=== PATIENT | female | born 1995 | race Caucasian/White ===

== ENCOUNTER 2018-07-09 23:16 | Outpatient (CLI) | payer OTHER ==
[2018-07-09] MEDS ORDERED: LACTATED RINGERS 500 ML IV ONE (23:45)
[2018-07-10] MEDS ORDERED: LACTATED RINGERS 1,000 ML ONE (00:05)
[2018-07-10] MEDS ORDERED: LACTATED RINGERS 1,000 ML IV ONE (00:07)
[2018-07-10 00:19] VITALS: BP 103/57
[2018-07-10 01:36] LABS: Amorphous Crystals,Urine Few; Bilirubin,Urine NEG (Negative); Blood,Urine NEG (Negative); Color,Urine Yellow (Yellow); Mucus,Urine FEW /HPF; Protein,Urine <15 mg/dL mg/dL (Negative); Urobilinogen,Urine < 2.0 mg/dL (<2.0)
== END 2018-07-10 01:49 | disposition home or self-care (01) ==
LOC: TRG 23:16
PROVIDERS: ATTEND Obstetrics & Gynecology
DX: O62.9 Abnormality of forces of labor, unspecified (principal); O26.893 Other specified pregnancy related conditions, third trimester; R10.9 Unspecified abdominal pain; O99.323 Drug use complicating pregnancy, third trimester; F12.90 Cannabis use, unspecified, uncomplicated; Z87.891 Personal history of nicotine dependence; Z3A.34 34 weeks gestation of pregnancy
CPT/HCPCS: 59025; 81001; J7120; 96360

== ENCOUNTER 2018-08-16 00:50 | Outpatient (CLI) | payer OTHER ==
[2018-08-16 01:12] VITALS: BP 116/58
== END 2018-08-16 02:25 | disposition home or self-care (01) ==
LOC: TRG 00:50
PROVIDERS: ATTEND Obstetrics & Gynecology
DX: O47.1 False labor at or after 37 completed weeks of gestation (principal); O99.513 Diseases of the respiratory system complicating pregnancy, third trimester; J45.909 Unspecified asthma, uncomplicated; Z3A.40 40 weeks gestation of pregnancy
CPT/HCPCS: 59025

== ENCOUNTER 2018-08-16 07:59 | Inpatient (IN) | payer OTHER, MEDICAID ==
[2018-08-16] MEDS ORDERED: STADOL IV PRN (08:11)
[2018-08-16] MEDS ORDERED: XYLOCAINE 2% INFILTRATI ONE (08:11)
[2018-08-16] MEDS ORDERED: NARCAN 0.4 MG/1 ML IV PRN (08:11)
[2018-08-16] MEDS ORDERED: SUBLIMAZE IV PRN (08:11)
[2018-08-16] MEDS ORDERED: BRETHINE IVP PRN (08:11)
[2018-08-16] MEDS ORDERED: BRETHINE SUB-Q PRN (08:11)
[2018-08-16] MEDS ORDERED: ZOFRAN IV PRN ×2 (08:11→14:05)
[2018-08-16] MEDS ORDERED: AMPICILLIN/NS 2 GM/100 ML 2 GM/100 ML BAG IV ONE (08:11)
--- NOTE | 2018-08-16 08:20 | History and Physical Report ---
History of Present Illness Date of examination: 08/16/18 Chief complaint: Labor History of present illness: Pt is a 22yo BF EDC 08/15/18; EGA 40 1/7 weeks presents to L&D complaining of RUC's q 2-3 mins. She received late care at [facility] since 23 weeks and co-managed by [facility] for Obesity and late care. records are available and GBS is Positive. Past History Past Medical History: asthma Past Surgical History: no surgical history FACILITY COORDINATOR History: abnormal PAP smear Social history: no significant social history, single - Obstetrical History Expected Date of Delivery: 08/15/18 Actual Gestation: 40 Week(s) 1 Day(s) : 3 Medications and Allergies Allergies Allergy/AdvReac Type Severity Reaction Status Date / Time No Known Allergies Allergy Unverified 07/09/18 23:45 Active Meds: Active Medications Butorphanol Tartrate (Stadol) 2 mg IV Q2H PRN PRN Reason: Pain , Severe (7-10) Ephedrine Sulfate (Ephedrine Sulfate) 10 mg IV Q2M PRN PRN Reason: Hypotension Fentanyl (Sublimaze) 100 mcg IV Q2H PRN PRN Reason: Labor Pain Oxytocin/Sodium Chloride (Pitocin/Ns 20 Unit/1000ml Drip) 20 units in 1,000 mls @ 125 mls/hr IV DIRECT BECKIE Oxytocin/Sodium Chloride (Pitocin/Ns 30 Unit/500ml) 30 units in 500 mls @ 1 mls/hr IV TITR BECKIE; Protocol Oxytocin/Sodium Chloride (Pitocin/Ns 30 Unit/500ml) 30 units in 500 mls @ 4 mls/hr IV TITR BECKIE; Protocol Lactated Ringer's (Lactated Ringers) 1,000 mls @ 125 mls/hr IV DIRECT BECKIE Ampicillin Sodium (Ampicillin/Ns 1 Gm/50 Ml) 1 gm in 50 mls @ 100 mls/hr IV Q4HR BECKIE; Protocol Ampicillin Sodium (Ampicillin/Ns 2 Gm/100 Ml) 2 gm in 100 mls @ 100 mls/hr IV ONCE ONE; Protocol Stop: 08/16/18 09:10 Lidocaine (Xylocaine 2%) 20 ml INFILTRATI ONCE ONE Stop: 08/16/18 08:12 Mineral Oil (Mineral Oil) 30 ml PO QHS PRN PRN Reason: Constipation Naloxone HCl (Narcan 0.4 Mg/1 Ml) 0.1 mg IV Q2MIN PRN PRN Reason: Res Rate </= 8 or 02 SAT < 92% Ondansetron HCl (Zofran) 4 mg IV Q8H PRN PRN Reason: Nausea And Vomiting Terbutaline Sulfate (Brethine) 0.25 mg SUB-Q ONCE PRN PRN Reason: Hyperstimulation/Hypertonicity Terbutaline Sulfate (Brethine) 0.25 mg IVP ONCE PRN PRN Reason: Hyperstimulation/Hypertonicity Review of Systems All systems: negative - Vital Signs Vital signs: Vital Signs Pulse BP 83 111/65 08/16/18 08:14 08/16/18 08:14 Temp Pulse Resp BP Pulse Ox 83 111/65 08/16/18 08:14 08/16/18 08:14 - Physical Exam Breasts: Positive: deferred Cardiovascular: Regular rate Lungs: Positive: Clear to auscultation Abdomen: Positive: normal appearance Genitourinary (Female): Positive: normal external genitalia Vagina: Positive: normal moisture Uterus: Positive: enlarged Extremities: Positive: normal - Obstetrical FHR: category 1 Uterine Contraction Monitor Mode: External Cervical Dilatation: 6 (per nurse) Cervical Effacement Percentage: 70 (per nurse) station: -1 Uterine Contraction Pattern: Regular Uterine Tone Measurement Phase: Contraction Uterine Contraction Intensity: Strong/Firm Results All other labs normal. Assessment and Plan - Patient Problems (1) 40 weeks gestation of Onset Date: 08/16/18 Current Visit: Yes Status: Acute Plan to address problem: A: IUP @ 40 1/7 weeks in labor +GBS P: Admit to L&D for expectant vaginal delivery IV Ampicillin
[2018-08-16] MEDS: LACTATED RINGERS 1,000 ML IV SCH ×2 (08:22→09:02)
[2018-08-16 08:51] LABS: Hematocrit 36.9 % (30.3-42.9); Hemoglobin 12.5 gm/dl (10.1-14.3); Mean Corpuscular HGB Conc 34 % (30-34); Mean Corpuscular Volume 80 fl (79-97); Platelet Count 268 K/mm3 (140-440); Red Blood Count 4.62 M/mm3 (3.65-5.03); Red Cell Distribution Width 15.2 % (13.2-15.2)
[2018-08-16] MEDS ORDERED: PITOCin/NS 20 UNIT/1000ML DRIP 20 UNITS/1,000 ML BAG IV SCH ×2 (09:00→15:00)
[2018-08-16] MEDS ORDERED: PITOCin/NS 30 UNIT/500ML 30 UNITS/500 ML BAG IV SCH ×2 (09:00)
[2018-08-16] MEDS ORDERED: fentaNYL-BUPIV 2 MCG/ML-0.125% 200 MCG/100 ML BAG EPIDURAL ONE (09:09)
[2018-08-16] MEDS ORDERED: NARCAN 2 MG/2 ML IV PRN (09:38)
--- NOTE | 2018-08-16 09:40 | Anesthesia Day of Surgery ---
Anesthesia Day of Surgery - Day of Surgery Patient Examined: Yes Patient H&P Reviewed: Yes Patient is NPO: Yes Beta Blockers: No Cardiac Clearance: No Pulmonary Clearance: No Basilio's Test: N/A
--- NOTE | 2018-08-16 09:40 | Anesthesia Consultation ---
Anesthesia Consult and Med Hx - Airway Anesthetic Teeth Evaluation: Good ROM Head & Neck: Adequate Mental/Hyoid Distance: Adequate Mallampati Class: Class II Intubation Access Assessment: Probably Good - Pulmonary Exam CTA: Yes - Cardiac Exam Cardiac Exam: RRR - Pre-Operative Health Status ASA Pre-Surgery Classification: ASA2 Proposed Anesthetic Plan: Epidural - Pulmonary Hx Asthma: Yes (Uses inhaler.) COPD: No Hx Pneumonia: No - Cardiovascular System Hx Hypertension: No - Central Nervous System Hx Seizures: No Hx Psychiatric Problems: No - Endocrine Hx Renal Disease: No Hx End Stage Renal Disease: No Hx Hypothyroidism: No Hx Hyperthyroidism: No - Hematic Hx Anemia: No Hx Sickle Cell Disease: No - Other Systems Hx Alcohol Use: No
[2018-08-16] MEDS ORDERED: MARCAINE 0.25% INFILTRATI ONE (09:43)
[2018-08-16] MEDS ORDERED: fentaNYL-BUPIV 2 MCG/ML-0.125% 200 MCG/100 ML BAG EPIDURAL SCH (10:00)
[2018-08-16] MEDS ORDERED: AMPICILLIN/NS 1 GM/50 ML 1 GM/50 ML BAG IV SCH (12:00)
--- NOTE | 2018-08-16 14:04 | Procedure Note ---
OB Delivery Note - Delivery Date of Delivery: 08/16/18 Surgeon: BRUCE CHAMPION Estimated blood loss: 200cc - Vaginal Delivery presentation: vertex Delivery position: OA Intrapartum events: PROM->1hr before delivery Delivery induction: none Delivery augmentation: rupture of membranes, pitocin Delivery monitor: external FHT, external uterine Route of delivery: Delivery placenta: spontaneous Delivery cord: 3 umbilical vessels Episiotomy: none Delivery laceration: none Anesthesia: epidural Delivery comments: delivered OA and placed on Mom's chest for [id number] bonding and delayed cord clamping, cut by Aunt - Infant A at 1 minute: 8 at 5 minutes: 9 Infant Gender: Female (4162gms)
[2018-08-16] MEDS ORDERED: PHENERGAN PR PRN (14:05)
[2018-08-16] MEDS ORDERED: BENADRYL PO PRN (14:05)
[2018-08-16] MEDS ORDERED: MILK OF MAGNESIA PO PRN (14:05)
[2018-08-16] MEDS ORDERED: PHENERGAN PO PRN (14:05)
[2018-08-16] MEDS ORDERED: TUCKS PAD TP PRN (14:05)
[2018-08-16] MEDS ORDERED: TYLENOL PO PRN (14:05)
[2018-08-16] MEDS ORDERED: DULCOLAX PR PRN (14:05)
[2018-08-16] MEDS ORDERED: LANSINOH TP PRN (14:05)
[2018-08-16] MEDS ORDERED: SODIUM CHLORIDE FLUSH SYRINGE 10 ML IV NR (15:00)
[2018-08-16] MEDS: IBUPROFEN PO SCH ×2 (17:40→22:00)
[2018-08-16] MEDS: NORCO 5/325 PO PRN ×2 (17:40→23:16)
[2018-08-16] MEDS: FEOSOL PO SCH (21:58)
[2018-08-16] MEDS ORDERED: MINERAL OIL PO PRN (22:00)
[2018-08-17 01:40] LABS: Hematocrit 34.5 % (30.3-42.9); Hemoglobin 11.3 gm/dl (10.1-14.3)
[2018-08-17] MEDS: IBUPROFEN PO SCH (04:51)
[2018-08-17] MEDS: NORCO 5/325 PO PRN ×2 (04:51→17:15)
[2018-08-17] MEDS ORDERED: M-M-R II VACCINE SUB-Q ONE (06:00)
[2018-08-17] MEDS ORDERED: BOOSTRIX IM ONE (06:00)
[2018-08-17] MEDS ORDERED: PRENATAL VITAMIN PO SCH (10:00)
--- NOTE | 2018-08-17 12:00 | Progress Note ---
Assessment and Plan - Patient Problems (1) 40 weeks gestation of Onset Date: 08/16/18 Current Visit: Yes Status: Resolved (2) (normal spontaneous vaginal delivery) Onset Date: 08/17/18 Current Visit: Yes Status: Resolved Plan to address problem: A: S/P - PPD #1 Doing well Asymptomatic anemia - stable P: May go home today. Subjective - Subjective Date of service: 08/17/18 Principal diagnosis: s/p - PPD #1 Interval history: Pt is feeling well without complaints. Bleeding improved. Patient reports: appetite normal, voiding normally, pain well controlled, flatus, ambulating normally, no dizzy ambulation, no nauseated : doing well, bottle feeding Objective - Vital Signs Latest vital signs: Vital Signs Temp Pulse Resp BP BP Pulse Ox 08/17/18 07:29 97.6 F 82 18 106/67 08/17/18 04:00 98.4 F 78 16 103/76 08/17/18 00:00 98.4 F 77 18 104/75 08/16/18 21:49 98.0 F 86 18 102/52 98 08/16/18 15:01 74 114/61 08/16/18 14:46 69 114/60 08/16/18 14:31 80 122/62 08/16/18 14:17 86 117/65 08/16/18 14:02 86 123/71 08/16/18 13:48 96 H 119/57 08/16/18 13:42 86 96 08/16/18 13:37 77 97 08/16/18 13:32 115 H 98 08/16/18 13:27 88 98 08/16/18 13:22 80 98 08/16/18 13:17 87 98 08/16/18 13:15 82 106/57 08/16/18 13:12 82 98 08/16/18 13:07 86 97 08/16/18 13:02 80 98 08/16/18 12:57 89 99 08/16/18 12:52 94 H 97 08/16/18 12:47 97 H 97 08/16/18 12:42 94 H 97 08/16/18 12:37 103 H 98 08/16/18 12:32 84 98 08/16/18 12:27 85 99 08/16/18 12:22 101 H 99 08/16/18 12:17 87 98 08/16/18 12:16 108 H 118/76 08/16/18 12:12 92 H 98 08/16/18 12:07 95 H 98 08/16/18 12:02 93 H 98 Intake and Output 08/16/18 08/17/18 08/17/18 22:59 06:59 14:59 Intake Total 120 200 480 Output Total 1999 Balance -1880 200 480 Intake: Oral 120 200 480 Output: Urine 1999 Void 2000 Other: Total, Intake Amount 120 200 480 Total, Output Amount 400 # Voids Void 1 - Exam Breasts: Present: deferred Abdomen: Present: normal appearance, soft Uterus: Present: normal, firm, fundal height below umbilicus Extremities: Present: normal - Labs Labs: Laboratory Tests 08/16/18 08/16/18 08/16/18 08:12 08:15 08:15 WBC 11.5 H RBC 4.62 Hgb 12.5 Hct 36.9 MCV 80 MCH 27 L MCHC 34 RDW 15.2 Plt Count 268 RPR Nonreactive Hep Bs Antigen Non-reactive Blood Type Antibody Screen 08/16/18 08/17/18 08:15 01:15 WBC RBC Hgb 11.3 Hct 34.5 MCV MCH MCHC RDW Plt Count RPR Hep Bs Antigen Blood Type O POSITIVE Antibody Screen Negative
[2018-08-17] MEDS: FEOSOL PO SCH (12:24)
--- NOTE | 2018-08-17 16:06 | Discharge Summary ---
Providers - Providers Date of Admission: 08/16/18 08:00 Date of discharge: 08/17/18 Attending physician: BRUCE CHAMPION Primary care physician: BRUCE CHAMPION Hospitalization Reason for admission: active labor, IUP at term, other (+GBS) Delivery: Episiotomy: none Laceration: none Other procedures: none complications: none Discharge diagnosis: IUP at term delivered baby: female Hospital course: Unremarkable. Condition at discharge: Good Disposition: DC-01 TO HOME OR SELFCARE - Discharge Diagnoses (1) 40 weeks gestation of Status: Resolved (2) (normal spontaneous vaginal delivery) Status: Resolved Plan - Discharge Medications Prescriptions: Ferrous Sulfate [Feosol 325 MG tab] 325 mg PO BID #60 tablet Ibuprofen [Motrin 600 MG tab] 600 mg PO Q6H #30 tablet Vit-Fe Fumar-FA [ Vitamin] 1 each PO QDAY #30 tablet - Provider Discharge Summary Activity: routine, no sex for 6 weeks, no heavy lifting 4 weeks, no strenuous exercise Diet: routine Instructions: routine Additional instructions: [] Smoking cessation referral if applicable(refer to patient education folder for contact #) [] Refer to [facility]'s [facility] Center Booklet Call your doctor immediately for: * Fever > 100.5 * Heavy vaginal bleeding ( >1 pad per hour) * Severe persistent headache * Shortness of breath * Reddened, hot, painful area to leg or breast * Drainage or odor from incision. * Keep incision clean and dry at all times and follow doctor's instructions regarding bathing/showering - Follow up plan Follow up: RBUCE CHAMPION MD [Primary Care Provider] - 6 Weeks NORM LUDWIG CNM [Advanced Practice Nurse] - 6 Weeks
[2018-08-17 16:31] VITALS: BP 102/53
== END 2018-08-17 18:19 | disposition home or self-care (01) | DRG 775 ==
LOC: TRG 07:59 → LD 08:00 → OB 15:55
PROVIDERS: ADMIT Obstetrics & Gynecology; ATTEND Obstetrics & Gynecology
PROC: 10E0XZZ Delivery of Products of Conception, External Approach (ICD-10-PCS; principal; 2018-08-16)
PROC: 3E0R3BZ Introduction of Anesthetic Agent into Spinal Canal, Percutaneous Approach (ICD-10-PCS; 2018-08-16)
PROC: 00HU33Z Insertion of Infusion Device into Spinal Canal, Percutaneous Approach (ICD-10-PCS; 2018-08-16)
DX: O99.824 Streptococcus B carrier state complicating childbirth (principal); O99.214 Obesity complicating childbirth; O99.52 Diseases of the respiratory system complicating childbirth; J45.909 Unspecified asthma, uncomplicated; O42.02 Full-term premature rupture of membranes, onset of labor within 24 hours of rupture; E66.9 Obesity, unspecified; Z3A.40 40 weeks gestation of pregnancy; Z37.0 Single live birth; Z68.43 Body mass index [BMI] 50.0-59.9, adult; O99.02 Anemia complicating childbirth
CPT/HCPCS: 36415; 59025; 85014; 85018; 85027; 86592; 86706; 86850; 86900; 86901; G0378; J0290; J2405; J2590; J3010; J7120; Q0169